=== PATIENT | female | born 1965 | race Caucasian/White ===

== ENCOUNTER 2022-10-03 10:15 | Emergency (ER) | payer OTHER ==
[~2022-10-03] VITALS: Ht 147.3 cm; Wt 86.4 kg
[2022-10-03] MEDS ORDERED: FLEC50TA3 PO (10:34)
[2022-10-03] MEDS ORDERED: DICL100G31 TP (10:34)
[2022-10-03] MEDS ORDERED: METO25 PO (10:34)
[2022-10-03] MEDS ORDERED: ATOR20TA65 PO (10:34)
[2022-10-03] MEDS ORDERED: LIDOCAINE 5% TRANSDERMAL PATCH TD ONE (12:30)
[2022-10-03] MEDS ORDERED: IBUP-1492 PO (12:34)
[2022-10-03] MEDS ORDERED: CYCL-448 PO (12:34)
[2022-10-03 12:44] VITALS: BP 110/60
== END 2022-10-03 12:47 | disposition home or self-care (01) ==
LOC: EMS 10:19
DX: M54.50 Low back pain, unspecified (principal); E78.00 Pure hypercholesterolemia, unspecified; Z98.890 Other specified postprocedural states
CPT/HCPCS: 99283